=== PATIENT | female | born 1980 | race Caucasian/White ===

== ENCOUNTER 2016-11-01 10:26 | Emergency (ER) | payer OTHER ==
[~2016-11-01] VITALS: Ht 157.5 cm; Wt 49.9 kg
[~2016-11-01 10:26] MED LIST: CITA10TA4 PO; DICY10CA3 PO; IBUP-1060 PO; ONDA4TAB10 SL; ONDA4TAB7 PO; POTA10CA PO; PRED50TA PO
[2016-11-01] MEDS ORDERED: ONDANSETRON PF 4 MG/2 ML VIAL. IV ONE (11:15)
[2016-11-01 11:20] LABS: BILIRUBIN,URINE SMALL (NEG); GLUCOSE,URINE 100 mg/dL (NEG); NITRITE,URINE POSITIVE (NEG); PH,URINE 5.5; PROTEIN,URINE 100 mg/dL (NEG-TRACE)
[2016-11-01] MEDS ORDERED: MULTIVIT INFUSN,ADULT 4,VIT K 10 ML, FOLIC ACID 1 MG, THIAMINE 100 MG in IV NORMAL SALI... IV ONE (11:30)
--- NOTE | 2016-11-01 11:33 | PHYS DOC ---
Past Medical History Past Medical History: Asthma, Other Additional Past Medical Histor: RIGHT JAW SURGERY D/T FRACTURE, IBS, HPV Past Surgical History: Other Additional Past Surgical Histo: right jaw surgery Alcohol Use: Heavy Additional Information: 1 pint a day Drug Use: Marijuana Adult General Chief Complaint Chief Complaint: NAUSEA/VOMITING/DIARRHA HPI HPI This is a 36-year-old female who presents with ongoing epigastric pain with nausea and vomiting. She reports that she has had issues with alcohol abuse in the past and recently started using again yesterday. She now has significant epigastrium pain and nausea vomiting. She has vomited over 10 times. She denies any blood in her vomit. She states her last bowel movement was over 9 out of ago and was loose but no blood was seen. She denies any significant abdominal surgery. She rates her pain currently an 8 out of 10 on the pain scale localized to the epigastrium area. She denies any history of pancreatitis. Review of Systems Review of Systems Constitutional: Denies fever or chills [] Eyes: Denies change in visual acuity, redness, or eye pain [] HENT: Denies nasal congestion or sore throat [] Respiratory: Denies cough or shortness of breath [] Cardiovascular: No additional information not addressed in HPI [] GI: Has abdominal pain, has nausea, has vomiting, denies bloody stools or diarrhea [] : Denies dysuria or hematuria [] Musculoskeletal: Denies back pain or joint pain [] Integument: Denies rash or skin lesions [] Neurologic: Denies headache, focal weakness or sensory changes [] Endocrine: Denies polyuria or polydipsia [] Current Medications Current Medications Current Medications Medications (Trade) Dose Ordered Sig/Howard Start Time Stop Time Status Last Admin Dose Admin Ceftriaxone Sodium (Rocephin 1gm Ivpb For Omni) 50 ml @ 100 mls/hr 1X ONCE 11/01/16 12:45 11/01/16 13:14 DC 11/01/16 13:08 100 MLS/HR Fentanyl Citrate 50 mcg 50 mcg 1X ONCE 11/01/16 11:45 11/01/16 11:46 DC 11/01/16 11:51 50 MCG Multivitamins/ Folic Acid/ Thiamine HCl/ Sodium Chloride (Infuvite Adult/ Iv Sodium Chloride 0.9% 1000ml Bag) 1,011.2 ml @ 1,000 mls/ hr 1X ONCE 11/01/16 11:30 11/01/16 12:30 DC 11/01/16 11:28 1,000 MLS/HR Ondansetron HCl 4 mg 4 mg 1X ONCE 11/01/16 11:15 11/01/16 11:16 DC 11/01/16 11:12 4 MG Allergies Allergies Allergies Coded Allergies Type Severity Reaction Last Updated Verified Sulfa (Sulfonamide Antibiotics) Allergy Intermediate Hives 05/16/16 Yes Physical Exam Physical Exam Constitutional: Well developed, well nourished, mild distress, non-toxic appearance. [] HENT: Normocephalic, atraumatic, bilateral external ears normal, oropharynx moist, no oral exudates, nose normal. [] Eyes: PERRLA, EOMI, conjunctiva normal, no discharge. [] Neck: Normal range of motion, no tenderness, supple, no stridor. [] Cardiovascular:Heart rate regular rhythm, no murmur [] Lungs & Thorax: Bilateral breath sounds clear to auscultation [] Abdomen: Bowel sounds normal, soft, moderate epigastric tenderness, no masses, no pulsatile masses. [] Skin: Warm, dry, no erythema, no rash. [] Back: No tenderness, no CVA tenderness. [] Extremities: No tenderness, no cyanosis, no clubbing, ROM intact, no edema. [] Neurologic: Alert and oriented X 3, normal motor function, normal sensory function, no focal deficits noted. [] Psychologic: Affect normal, judgement normal, mood normal. [] Current Patient Data Vital Signs Vital Signs Date Time Temp Pulse Resp B/P Pulse Ox O2 Delivery O2 Flow Rate FiO2 11/01/16 13:08 79 18 118/75 99 Room Air 11/01/16 10:35 97.6 97.6 Lab Values Laboratory Tests Test 11/01/16 10:01 11/01/16 11:00 11/01/16 11:10 11/01/16 12:10 POC Urine HCG, Qualitative Hcg negative (Negative) Urine Collection Type Unknown Urine Color Wendy Urine Clarity Turbid Urine pH 5.5 Urine Specific [place] 1.025 Urine Protein 100mg/dL (NEG-TRACE) Urine Glucose (UA) 100mg/dL (NEG) Urine Ketones (Stick) Negativemg/dL (NEG) Urine Blood Large (NEG) Urine Nitrite Positive (NEG) Urine Bilirubin Small (NEG) Urine Urobilinogen Dipstick 1.0mg/dL (0.2 mg/dL) Urine Leukocyte Esterase Moderate (NEG) Urine RBC 3-5/HPF (0-2) Urine WBC 11-20/HPF (0-4) Urine Bacteria Moderate/HPF (0-FEW) Urine Opiates Screen Neg (NEG) Urine Methadone Screen Neg (NEG) Urine Barbiturates Neg (NEG) Urine Phencyclidine Screen Neg (NEG) Urine Amphetamine/Methamphetamine Neg (NEG) Urine Benzodiazepines Screen Neg (NEG) Urine Cocaine Screen Pos (NEG) Urine Cannabinoids Screen Neg (NEG) Urine Ethyl Alcohol Neg (NEG) Ethyl Alcohol Level < 10mg/dL (0-10) White Blood Count 26.5x10^3/uL (4.0-11.0) H Red Blood Count 4.81x10^6/uL (3.50-5.40) Hemoglobin 14.8g/dL (12.0-15.5) Hematocrit 45.0% (36.0-47.0) Mean Corpuscular Volume 94fL (79-100) Mean Corpuscular Hemoglobin 31pg (25-35) Mean Corpuscular Hemoglobin Concent 33g/dL (31-37) Red Cell Distribution Width 12.7% (11.5-14.5) Platelet Count 228x10^3/uL (140-400) Neutrophils (%) (Auto) 92% (31-73) H Lymphocytes (%) (Auto) 4% (24-48) L Monocytes (%) (Auto) 3% (0-9) Eosinophils (%) (Auto) 0% (0-3) Basophils (%) (Auto) 0% (0-3) Neutrophils # (Auto) 24.5x10^3uL (1.8-7.7) H Lymphocytes # (Auto) 1.0x10^3/uL (1.0-4.8) Monocytes # (Auto) 0.9x10^3/uL (0.0-1.1) Eosinophils # (Auto) 0.0x10^3/uL (0.0-0.7) Basophils # (Auto) 0.1x10^3/uL (0.0-0.2) Segmented Neutrophils % 95% (35-66) H Lymphocytes % 1% (24-48) L Monocytes % 3% (0-10) Basophils % 1% (0-3) Platelet Estimate Adequate (ADEQUATE) Polychromasia Slight Tear Drop Cells Occ Ovalocytes Occ Sodium Level 140mmol/L (136-145) Potassium Level 3.9mmol/L (3.5-5.1) Chloride Level 100mmol/L (98-107) Carbon Dioxide Level 28mmol/L (21-32) Anion Gap 12 (6-14) Blood Urea Nitrogen 12mg/dL (7-20) Creatinine 0.8mg/dL (0.6-1.0) Estimated GFR (Cockcroft-Gault) 80.7 BUN/Creatinine Ratio 15 (6-20) Glucose Level 147mg/dL (70-99) H Calcium Level 9.0mg/dL (8.5-10.1) Total Bilirubin 0.7mg/dL (0.2-1.0) Aspartate Amino Transferase (AST) 25U/L (15-37) Alanine Aminotransferase (ALT) 20U/L (14-59) Alkaline Phosphatase 137U/L (46-116) H Total Protein 7.7g/dL (6.4-8.2) Albumin 3.7g/dL (3.4-5.0) Albumin/Globulin Ratio 0.9 (1.0-1.7) L Lipase 64U/L (73-393) L Laboratory Tests 11/01/16 12:10 Laboratory Tests 11/01/16 12:10 EKG EKG [] Radiology/Procedures Radiology/Procedures [] Course & Med Decision Making Course & Med Decision Making Pertinent Labs and Imaging studies reviewed. (See chart for details) This 36-year-old female is likely having symptoms of alcohol withdrawal with significant epigastrium pain and nausea and vomiting. Full laboratory workup will be obtained including an IV fluid bolus and Zofran. Her laboratory workup is unrevealing besides a urinalysis that was positive for nitrites and drug screen positive for cocaine. A IV dose or Rocephin was given. I will be providing her a prescription for Keflex for her UTI. Her heart rate improved significantly with a IV fluid bolus. Upon my final reassessment, patient feels much improved and I'll be discharging her home with antibiotics and Zofran with strict instructions to avoid any illicit drug use or alcohol use. Follow closely with her primary care doctor for symptom resolution. Dragon Disclaimer Dragon Disclaimer This electronic medical record was generated, in whole or in part, using a voice recognition dictation system. Departure Departure Impression: Primary Impression: Nausea & vomiting Additional Impression: Urinary tract infection Disposition: HOME, SELF-CARE Admitting Physician: Other Condition: STABLE Referrals: NATALIE FLORES MD (PCP) Patient Instructions: Nausea and Vomiting, [id number] Additional Instructions: Please take your zofran as needed for your nausea. Take your antibiotic for your urinary infection. Follow up closely with your primary doctor in the next 2 -3 days. Return to the ER if you develop any worsening of your symptoms. Scripts Ondansetron Hcl (Zofran)4 Mg Tablet4 Mg PO BID PRN NAUSEA/VOMITING #1 TAB Prov:OJLENE RAMOS DO 11/01/16 Cephalexin (Keflex)500 Mg Capsule1 Cap PO BID #20 CAP Prov:JOLENE RAMOS DO 11/01/16 Problem Qualifiers JOLENE RAMOS DO Nov 01, 2016 11:33
[2016-11-01 11:44] LABS: BACTERIA,URINE MODERATE /HPF (0-FEW)
[2016-11-01] MEDS ORDERED: FENTANYL PF 100 MCG/2 ML VIAL. IV ONE (11:45)
[2016-11-01 12:20] LABS: BASO # 0.1 x10^3/uL (0.0-0.2); BASO % 0 % (0-3); EOS % 0 % (0-3); HEMOGLOBIN 14.8 g/dL (12.0-15.5); LYMPH % 4 % (24-48); MEAN CORPUSCULAR HEMOGLOBIN 31 pg (25-35); MEAN CORPUSCULAR HGB CONC 33 g/dL (31-37); MEAN CORPUSCULAR VOLUME 94 fL (79-100); MONO % 3 % (0-9); NEUT % 92 % (31-73); PLATELET COUNT 228 x10^3/uL (140-400); RED BLOOD COUNT 4.81 x10^6/uL (3.50-5.40); RED CELL DISTRIBUTION WIDTH 12.7 % (11.5-14.5); WHITE BLOOD COUNT 26.5 x10^3/uL (4.0-11.0)
[2016-11-01 12:30] LABS: CREATININE 0.8 mg/dL (0.6-1.0); GFR 80.7; POTASSIUM 3.9 mmol/L (3.5-5.1)
[2016-11-01 12:37] LABS: ALBUMIN 3.7 g/dL (3.4-5.0); ALBUMIN/GLOBULIN RATIO 0.9 (1.0-1.7); TOTAL BILIRUBIN 0.7 mg/dL (0.2-1.0); TOTAL PROTEIN 7.7 g/dL (6.4-8.2)
[2016-11-01] MEDS ORDERED: CEFTRIAXONE 1GM IVPB FOR OMNI 50 ML IV ONE (12:45)
[2016-11-01 13:08] VITALS: BP 118/75
[2016-11-01 13:18] LABS: BARBITURATES NEG (NEG); BENZODIAZEPINES NEG (NEG); CANNABINOIDS NEG (NEG); COCAINE POS (NEG); METHADONE NEG (NEG); OPIATES NEG (NEG); PHENCYCLIDINE NEG (NEG)
[2016-11-01 13:22] LABS: ETHANOL, URINE NEG (NEG)
[2016-11-01] MEDS ORDERED: CEPH-264 PO (14:05)
[2016-11-01] MEDS ORDERED: ONDA4TAB7 PO (14:05)
[2016-11-01 14:54] LABS: % BASOS 1 % (0-3)
[2016-11-01 14:56] LABS: OVALOCYTES OCC; PLT ESTIMATE ADEQUATE (ADEQUATE); POLYCHROMASIA SLIGHT; TEAR DROP CELLS OCC
== END 2016-11-01 15:23 | disposition home or self-care (01) ==
LOC: ER 10:26
DX: R11.2 Nausea with vomiting, unspecified (principal); N39.0 Urinary tract infection, site not specified; J45.909 Unspecified asthma, uncomplicated; F12.10 Cannabis abuse, uncomplicated; Z88.2 Allergy status to sulfonamides
CPT/HCPCS: 36415; 80053; 80305; 80320; 81001; 81025; 83690; 85007; 85027; 87086; 87186; 96365; 96367; 96375; 99284; J0690; J2405; J3010; J7030; G0480; G0481

== ENCOUNTER 2016-11-12 00:30 | Emergency (ER) | payer OTHER ==
[~2016-11-12] VITALS: Ht 157.5 cm; Wt 49.9 kg
[~2016-11-12 00:30] MED LIST changes: +CEPH-264 PO
[2016-11-12 00:33] VITALS: BP 120/86
[2016-11-12 02:20] LABS: BILIRUBIN,URINE NEGATIVE (NEG); GLUCOSE,URINE NEGATIVE (NEG); NITRITE,URINE NEGATIVE (NEG); PROTEIN,URINE NEGATIVE (NEG-TRACE); UROBILINOGEN,URINE 0.2 mg/dL (0.2 mg/dL)
[2016-11-12 02:27] LABS: BACTERIA,URINE FEW /HPF (0-FEW); SQUAMOUS EPITHELIAL CELL,UR MOD /LPF; WBC,URINE 20-40 /HPF (0-4)
[2016-11-12] MEDS ORDERED: NAPROXEN 500 MG TABLET PO ONE (02:30)
[2016-11-12] MEDS ORDERED: METR500T4 PO (04:04)
[2016-11-12] MEDS ORDERED: NITR100C62 PO (04:04)
[2016-11-12] MEDS ORDERED: NAPR375T3 PO (04:04)
--- NOTE | 2016-11-12 04:04 | PHYS DOC ---
Past Medical History Past Medical History: Asthma, Other Additional Past Medical Histor: RIGHT JAW SURGERY D/T FRACTURE, IBS, HPV Past Surgical History: Other Additional Past Surgical Histo: right jaw surgery Alcohol Use: Heavy Additional Information: ETOH tonight Drug Use: None Social History Narrative: Reports Jose in the past Adult General Chief Complaint Chief Complaint: SORE THROAT HPI HPI Patient is a 36 year old female who presents with cough, sore throat, vaginal discharge. Patient reports for the past 3 days she has been having cough and sore throat, as well as pain with coughing and right lateral lower chest. No fever. No anterior chest pain. No shortness of breath. She also reports since Monday she is having a fair amount of white vaginal discharge as well as dysuria. No clear inciting or mitigating factors. She has not taken anything for symptoms. Review of Systems Review of Systems Constitutional: Denies fever or chills Eyes: Denies change in visual acuity or eye pain HENT: Sore throat Respiratory: Cough, congestion. No SOB Cardiovascular: Denies chest pain GI: Denies abdominal pain, nausea, vomiting, bloody stools or diarrhea : Dysuria, white vaginal discharge Musculoskeletal: Denies back pain or joint pain Integument: Denies rash or skin lesions Neurologic: Denies headache, focal weakness or sensory changes Current Medications Current Medications Current Medications Medications (Trade) Dose Ordered Sig/Howard Start Time Stop Time Status Last Admin Dose Admin Naproxen (Naprosyn) 500 mg 1X ONCE 11/12/16 02:30 11/12/16 02:31 DC 11/12/16 02:20 500 MG Allergies Allergies Allergies Coded Allergies Type Severity Reaction Last Updated Verified Sulfa (Sulfonamide Antibiotics) Allergy Intermediate Hives 05/16/16 Yes Physical Exam Physical Exam Constitutional: Well developed, well nourished, no acute distress, non-toxic appearance HENT: Normocephalic, atraumatic, bilateral external ears normal; oropharynx clear without erythema or exudate Eyes: EOMI, conjunctiva normal, no discharge Neck: Normal range of motion, no stridor Cardiovascular: Heart rate normal, regular rhythm, no murmur Lungs & Thorax: Bilateral breath sounds clear to auscultation; TTP over R lateral costal margin, no deformity or skin lesion noted Abdomen: Bowel sounds normal, soft, non-distended, no TTP Pelvic: Moderate amount thin white/sprague discharge; no CMT or adnexal tenderness Skin: Warm, dry, no erythema, no rash Extremities: No obvious deformity, no edema Neurologic: Alert and oriented X 3, no gross deficits noted Current Patient Data Vital Signs Vital Signs Date Time Temp Pulse Resp B/P Pulse Ox O2 Delivery O2 Flow Rate FiO2 11/12/16 00:33 97.9 102 16 98 Room Air 97.9 Lab Values Laboratory Tests Test 11/12/16 01:18 11/12/16 01:34 11/12/16 02:03 POC Urine HCG, Qualitative Hcg negative (Negative) Group A Streptococcus Rapid Negative (NEGATIVE) Urine Collection Type Unknown Urine Color Yellow Urine Clarity Clear Urine pH 7.0 Urine Specific [place] <=1.005 Urine Protein Negativemg/dL (NEG-TRACE) Urine Glucose (UA) Negativemg/dL (NEG) Urine Ketones (Stick) Negativemg/dL (NEG) Urine Blood Small (NEG) Urine Nitrite Negative (NEG) Urine Bilirubin Negative (NEG) Urine Urobilinogen Dipstick 0.2mg/dL (0.2 mg/dL) Urine Leukocyte Esterase Large (NEG) Urine RBC 3-5/HPF (0-2) Urine WBC 20-40/HPF (0-4) Urine Squamous Epithelial Cells Mod/LPF Urine Bacteria Few/HPF (0-FEW) Microbiology 11/12/16 Wet Prep - Final, Complete EKG EKG [] Radiology/Procedures Radiology/Procedures [] Course & Med Decision Making Course & Med Decision Making Pertinent Labs and Imaging studies reviewed. (See chart for details) Patient is 36-year-old female who presents with cough, sore throat, white vaginal discharge. Cough, sore throat likely due to viral illness. Dose of naproxen ordered for patient comfort. Pelvic exam performed, swabs sent to lab. UA indicative of UTI. Pelvic swabs show Trichomonas. Discussed results with patient. Will discharge with prescription for antibiotics, instructions for follow-up, return precautions. Dragon Disclaimer Dragon Disclaimer This electronic medical record was generated, in whole or in part, using a voice recognition dictation system. Departure Departure Impression: Primary Impression: Sore throat Additional Impressions: Cough Trichimoniasis Disposition: HOME, SELF-CARE Condition: STABLE Referrals: NATALIE FLORES MD (PCP) Patient Instructions: Costochondritis, Trichomoniasis, Urinary Tract Infection Additional Instructions: Thank you for allowing us to provide care today in the Emergency Department. Take the provided medication as directed. Schedule a follow up appointment with your primary care doctor. Return promptly to the Emergency Department if you develop any new or concerning symptoms. Scripts Naproxen 375 Mg [id number] Mg PO BID PRN PAIN #20 Prov:AJIT CASTAÑEDA MD 11/12/16 Metronidazole 500 Mg Tablet1 Tab PO BID #14 TAB Prov:AJIT CASTAÑEDA MD 11/12/16 Nitrofurantoin Monohyd/M-Cryst (Macrobid 100 Mg Capsule)100 Mg Capsule1 Cap PO BID #10 CAP Prov:AJIT CASTAÑEDA MD 11/12/16 Problem Qualifiers AJIT CASTAÑEDA MD Nov 12, 2016 04:04
[2016-11-12 07:11] LABS: NEGATIVE OBC STREP NEG; POSITIVE OBC STREP POS
--- NOTE | 2016-11-12 07:39 | RAD ---
EXAM: Chest, 2 views. HISTORY: Pain. COMPARISON: 05/08/2016. FINDINGS: Frontal and lateral views of the chest are obtained. There is no infiltrate, effusion or pneumothorax. The heart is normal in size. There is hyperinflation due to respiratory effort. There is a small nodular opacity overlying the right lower thorax likely due to a nipple shadow. IMPRESSION: No acute pulmonary finding.
== END 2016-11-12 04:17 | disposition home or self-care (01) ==
LOC: ER 00:30
DX: J02.9 Acute pharyngitis, unspecified (principal); R05 Cough; A59.9 Trichomoniasis, unspecified; K58.9 Irritable bowel syndrome, unspecified; J45.909 Unspecified asthma, uncomplicated; F12.10 Cannabis abuse, uncomplicated; F10.10 Alcohol abuse, uncomplicated; Z88.2 Allergy status to sulfonamides
CPT/HCPCS: 71020; 81001; 81025; 87070; 87086; 87491; 87591; 87880; 99285; Q0111

== ENCOUNTER 2019-03-29 17:21 | Emergency (ER) | payer SELFPAY ==
[~2019-03-29] VITALS: Ht 157.5 cm; Wt 56.7 kg
[~2019-03-29 17:21] MED LIST changes: +METR-34 PO; +NAPR-695 PO; +NITR100C62 PO; -POTA10CA PO; +POTA10TA12 PO
[2019-03-29 18:13] VITALS: BP 110/62
[2019-03-29] MEDS ORDERED: AMOX500C PO (18:28)
--- NOTE | 2019-03-29 18:29 | PHYS DOC ---
Past Medical History Past Medical History: Asthma, Other Additional Past Medical Histor: RIGHT JAW SURGERY D/T FRACTURE, IBS, HPV Past Surgical History: Other Additional Past Surgical Histo: right jaw surgery Alcohol Use: Heavy Drug Use: None Adult General Chief Complaint Chief Complaint: EYE PROBLEMS [facility] Patient is a 38 year old female who presents with 1 week of right thigh redness, pain in discharge. Patient's also had bilateral ear pain in sinus congestion. Patient denies fevers. Patient currently rates her pain a 7 out of 10. Review of Systems Review of Systems Constitutional: Denies fever or chills [] Eyes: Denies change in visual acuity. Right eye swelling, discharge, conjunctiva redness, or eye pain [] HENT: nasal congestion or sore throat. Bilateral ear pain.[] Respiratory: Denies cough or shortness of breath [] Cardiovascular: No additional information not addressed in HPI [] GI: Denies abdominal pain, nausea, vomiting, bloody stools or diarrhea [] : Denies dysuria or hematuria [] Musculoskeletal: Denies back pain or joint pain [] Integument: Denies rash or skin lesions [] Neurologic: Denies headache, focal weakness or sensory changes [] Endocrine: Denies polyuria or polydipsia [] All other systems were reviewed and found to be within normal limits, except as documented in this note. Allergies Allergies Allergies Coded Allergies Type Severity Reaction Last Updated Verified Sulfa (Sulfonamide Antibiotics) Allergy Intermediate Hives 05/16/16 Yes Physical Exam Physical Exam Constitutional: Well developed, well nourished, no acute distress, non-toxic appearance. [] HENT: Normocephalic, atraumatic, bilateral external ears normal, oropharynx moist, no oral exudates, nose normal. Bilateral tympanic redness and tenderness with examination. Throat reddened without swelling or exudates. [] Eyes: PERRLA, EOMI, conjunctiva reddened, yellow discharge. [] Neck: Normal range of motion, no tenderness, supple, no stridor. [] Cardiovascular:Heart rate regular rhythm, no murmur [] Lungs & Thorax: Bilateral breath sounds clear to auscultation [] Abdomen: Bowel sounds normal, soft, no tenderness, no masses, no pulsatile masses. [] Skin: Warm, dry, no erythema, no rash. [] Back: No tenderness, no CVA tenderness. [] Extremities: No tenderness, no cyanosis, no clubbing, ROM intact, no edema. [] Neurologic: Alert and oriented X 3, normal motor function, normal sensory function, no focal deficits noted. [] Psychologic: Affect normal, judgement normal, mood normal. [] Current Patient Data Vital Signs Vital Signs Date Time Temp Pulse Resp B/P (MAP) Pulse Ox O2 Delivery O2 Flow Rate FiO2 03/29/19 18:13 98.3 98 16 110/62 (78) 98 Room Air 98.3 EKG EKG [] Radiology/Procedures Radiology/Procedures [] Course & Med Decision Making Course & Med Decision Making Patient is a 38 year old female who presents with 1 week of right thigh redness, pain in discharge. Patient's also had bilateral ear pain in sinus congestion. Patient denies fevers. Patient currently rates her pain a 7 out of 10. Throat is reddened but there are no exudates or swelling. Lungs are clear to auscultation all lobes. Abdomen is soft and nontender. Bilateral tympanic membranes are reddened and tender with examination. Right eye is red and swollen with discharge and conjunctivae is red. The eye is also light sensitive. Patient denies injury or getting anything in night. States it itches. Patient denies nausea, vomiting, diarrhea, cough, chest pain, chest congestion, shortness of breath. Patient is prescribed an antibiotic for otitis media and eye drops for conjunctivitis. Patient follow-up her primary care provider. Dragon Disclaimer Dragon Disclaimer This electronic medical record was generated, in whole or in part, using a voice recognition dictation system. Departure Departure Impression: Primary Impression: Conjunctivitis Additional Impression: Otitis media Disposition: 01 HOME, SELF-CARE Condition: STABLE Referrals: NATALIE FLORES MD (PCP) Patient Instructions: Conjunctivitis (Viral and Bacterial), Otitis Media, Adult Additional Instructions: Follow primary care provider if not getting better. Use eye drops in the affected eye 4 times a day. Take medications as prescribed. Scripts Amoxicillin (AMOXICILLIN) 500 Mg Capsule 1 CAP PO BID for 10 Days, #20 CAP Prov: YULIANA FOSTER APRN 03/29/19 Problem Qualifiers Primary Impression: Conjunctivitis Conjunctivitis type: acute Acute conjunctivitis type: unspecified Laterality: right Qualified Codes: H10.31 - Unspecified acute conjunctivitis, right eye Additional Impression: Otitis media Otitis media type: unspecified Laterality: bilateral Qualified Codes: H 66.93 - Otitis media, unspecified, bilateral YULIANA FOSTER FIRER WATERTENDER Mar 29, 2019 18:29
[2019-03-29] MEDS ORDERED: POLYMYXIN/TRIMETHOPRIM OPHTH SOLUTION 10ML BOTTLE. OD ONE (18:30)
== END 2019-03-29 18:46 | disposition home or self-care (01) ==
LOC: ER 17:21
DX: H10.31 Unspecified acute conjunctivitis, right eye (principal); H66.93 Otitis media, unspecified, bilateral; J45.909 Unspecified asthma, uncomplicated; K58.9 Irritable bowel syndrome, unspecified; F10.20 Alcohol dependence, uncomplicated; Y90.9 Presence of alcohol in blood, level not specified; Z88.2 Allergy status to sulfonamides
CPT/HCPCS: 99283

== ENCOUNTER 2019-08-21 04:40 | Emergency (ER) | payer SELFPAY ==
[~2019-08-21] VITALS: Ht 157.5 cm; Wt 45.4 kg
[~2019-08-21 04:40] MED LIST changes: +AMOX500C PO
[2019-08-21] MEDS: IV NORMAL SALINE 1000ML BAG 1,000 ML IV ONE (05:30)
[2019-08-21] MEDS: fentaNYL PF VIAL 100 MCG/2 ML VIAL IVP ONE (05:30)
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
[2019-08-21 06:33] LABS: BASO # 0.1 x10^3/uL (0.0-0.2); BASO % 1 % (0-3); EOS # 0.1 x10^3/uL (0.0-0.7); EOS % 1 % (0-3); HEMOGLOBIN 13.7 g/dL (12.0-15.5); LYMPH # 2.2 x10^3/uL (1.0-4.8); LYMPH % 25 % (24-48); MEAN CORPUSCULAR HEMOGLOBIN 31 pg (25-35); MEAN CORPUSCULAR HGB CONC 33 g/dL (31-37); MEAN CORPUSCULAR VOLUME 93 fL (79-100); MONO # 0.9 x10^3/uL (0.0-1.1); MONO % 10 % (0-9); NEUT # 5.7 x10^3/uL (1.8-7.7); NEUT % 63 % (31-73); PLATELET COUNT 231 x10^3/uL (140-400); RED BLOOD COUNT 4.41 x10^6/uL (3.50-5.40); RED CELL DISTRIBUTION WIDTH 14.9 % (11.5-14.5)
[2019-08-21 06:42] LABS: CALCIUM 7.5 mg/dL (8.5-10.1); CREATININE 0.5 mg/dL (0.6-1.0); GFR 136.6; POTASSIUM 3.1 mmol/L (3.5-5.1)
[2019-08-21 06:48] LABS: ALBUMIN 3.1 g/dL (3.4-5.0); ALBUMIN/GLOBULIN RATIO 0.9 (1.0-1.7); TOTAL BILIRUBIN 0.4 mg/dL (0.2-1.0); TOTAL PROTEIN 6.4 g/dL (6.4-8.2)
[2019-08-21] MEDS: POTASSIUM CHLORIDE 20 MEQ TABLET.ER. PO ONE (07:10)
[2019-08-21 07:35] LABS: AMPHETAMINE/METHAMPHETAMINE NEG (NEG); BARBITURATES NEG (NEG); BENZODIAZEPINES NEG (NEG); BILIRUBIN,URINE NEGATIVE (NEG); CANNABINOIDS POS (NEG); CLARITY,URINE CLEAR; COCAINE NEG (NEG); COLOR,URINE YELLOW; METHADONE NEG (NEG); NITRITE,URINE NEGATIVE (NEG); OPIATES NEG (NEG); PH,URINE 5.5; PHENCYCLIDINE NEG (NEG); PROTEIN,URINE 30 mg/dL (NEG-TRACE); UROBILINOGEN,URINE 0.2 mg/dL (0.2 mg/dL)
[2019-08-21 07:36] LABS: HYALINE CASTS, URINE FEW /HPF
[2019-08-21 07:37] LABS: SQUAMOUS EPITHELIAL CELL,UR MOD /LPF
[2019-08-21 07:38] LABS: BACTERIA,URINE MODERATE /HPF (0-FEW)
[2019-08-21] MEDS ORDERED: ONDA4TAB7 PO ×2 (07:46→08:17)
[2019-08-21] MEDS ORDERED: RANI-376 PO ×2 (07:46→08:17)
[2019-08-21 08:35] VITALS: BP 124/77
== END 2019-08-21 08:48 | disposition home or self-care (01) ==
LOC: ER 04:40
DX: K80.50 Calculus of bile duct without cholangitis or cholecystitis without obstruction (principal); K29.20 Alcoholic gastritis without bleeding; E87.6 Hypokalemia; R11.2 Nausea with vomiting, unspecified; J45.909 Unspecified asthma, uncomplicated; F10.10 Alcohol abuse, uncomplicated; Z98.890 Other specified postprocedural states; Z88.2 Allergy status to sulfonamides; Z79.899 Other long term (current) drug therapy
CPT/HCPCS: 36415; 80053; 80307; 81001; 83690; 85025; 87086; 96361; 96374; 99285; G0480; J3010; J7030

== ENCOUNTER 2019-12-06 15:30 | Emergency (ER) | payer SELFPAY ==
[~2019-12-06] VITALS: Ht 177.8 cm; Wt 54.5 kg
[~2019-12-06 15:30] MED LIST changes: +RANI-376 PO
[2019-12-06 15:47] VITALS: BP 130/80
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
[2019-12-06 16:27] LABS: BILIRUBIN,URINE NEGATIVE (NEG); CLARITY,URINE CLEAR; COLOR,URINE YELLOW; NITRITE,URINE NEGATIVE (NEG); PROTEIN,URINE NEGATIVE (NEG-TRACE); UROBILINOGEN,URINE 0.2 mg/dL (0.2 mg/dL)
[2019-12-06 16:35] LABS: AMPHETAMINE/METHAMPHETAMINE POS (NEG); BARBITURATES NEG (NEG); BENZODIAZEPINES NEG (NEG); CANNABINOIDS NEG (NEG); COCAINE NEG (NEG); METHADONE NEG (NEG); OPIATES NEG (NEG); PHENCYCLIDINE NEG (NEG)
[2019-12-06 16:36] LABS: BACTERIA,URINE 0 /HPF (0-FEW); SQUAMOUS EPITHELIAL CELL,UR OCC /LPF; WBC,URINE RARE /HPF (0-4)
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
[2019-12-06] MEDS ORDERED: IBUP-1007 PO (17:11)
[2019-12-06] MEDS ORDERED: AMOX500C PO (17:11)
== END 2019-12-06 17:17 | disposition home or self-care (01) ==
LOC: ER 15:30
DX: H60.501 Unspecified acute noninfective otitis externa, right ear (principal); R51 Headache; F15.10 Other stimulant abuse, uncomplicated; J45.909 Unspecified asthma, uncomplicated; K58.9 Irritable bowel syndrome, unspecified; F17.200 Nicotine dependence, unspecified, uncomplicated; Z88.2 Allergy status to sulfonamides
CPT/HCPCS: 70450; 70486; 80307; 81001; 81025; 99285-25

== ENCOUNTER 2020-04-29 15:15 | Emergency (ER) | payer SELFPAY ==
[~2020-04-29 15:15] MED LIST changes: +IBUP-1007 PO
[2020-04-29 15:59] VITALS: BP 129/95
== END 2020-04-29 17:00 | disposition left against medical advice (07) ==
LOC: ER 15:15
DX: S71.151A Open bite, right thigh, initial encounter (principal); Z53.21 Procedure and treatment not carried out due to patient leaving prior to being seen by health care provider

== ENCOUNTER 2020-05-01 09:00 | Emergency (ER) | payer SELFPAY ==
[~2020-05-01] VITALS: Ht 165.1 cm; Wt 48.1 kg
[2020-05-01 09:08] VITALS: BP 116/84
[2020-05-01] MEDS ORDERED: LIDOCAINE 1%/EPI 1:100,000 20 ML VIAL. ONE (09:30)
[2020-05-01] MEDS ORDERED: BUPIVACAINE MPF 0.25% 10 ML VIAL. IJ ONE (09:30)
[2020-05-01] MEDS ORDERED: AMOXICILLIN/K CLAV 875/125MG TABLET. PO ONE (09:30)
[2020-05-01] MEDS ORDERED: LIDOCAINE 1%/EPI 1:100,000 20 ML VIAL. INJ ONE (09:45)
[2020-05-01] MEDS ORDERED: AMOX1TAB61 PO (09:52)
--- NOTE | 2020-05-01 09:53 | PHYS DOC ---
Past Medical History Past Medical History: Asthma, Gallstones, Other Additional Past Medical Histor: RIGHT JAW SURGERY D/T FRACTURE, IBS, HPV Past Surgical History: Other Additional Past Surgical Histo: right jaw surgery Smoking Status: Current Every Day Smoker Additional Information: 0.5 PPD Alcohol Use: Heavy Drug Use: None General Adult EDM: Chief Complaint: ANIMAL BITE HPI: HPI: The history was obtained from the patient. Patient is a 39-year-old female with PMH asthma who presents with a chief complaint of left thigh injury. Patient states approximately 2 weeks ago she was bitten by a dog over her proximal left thigh. She states that she was dog sitting for a friend. She is unsure of the dog's vaccination status. She states she did not present to any healthcare provider at that time. She states that the wound was left open and has been draining green-yellow discharge. She notes a mild redness around the bite wound. She does note some mild swelling to the area. Denies fevers. Unsure of last tetanus vaccination. States she is able to ambulate. No other complaints. Review of Systems: Review of Systems: Constitutional: Denies fever or chills. [] Eyes: Denies change in visual acuity. [] HENT: Denies nasal congestion or sore throat. [] Respiratory: Denies cough or shortness of breath. [] Cardiovascular: Denies chest pain or edema. [] GI: Denies abdominal pain, nausea, vomiting, bloody stools or diarrhea. [] : Denies dysuria. [] Musculoskeletal: Denies back pain or joint pain. [] Integument: Positive for animal bite Neurologic: Denies headache, focal weakness or sensory changes. [] Endocrine: Denies polyuria or polydipsia. [] Lymphatic: Denies swollen glands. [] Psychiatric: Denies depression or anxiety. [] Heart Score: Risk Factors: Risk Factors: DM, Current or recent (<one month) smoker, HTN, HLP, family history of CAD, obesity. Risk Scores: Score 0 - 3: 2.5% MACE over next 6 weeks - Discharge Home Score 4 - 6: 20.3% MACE over next 6 weeks - Admit for Clinical Observation Score 7 - 10: 72.7% MACE over next 6 weeks - Early Invasive Strategies Current Medications: Current Medications Medications (Trade) Dose Ordered Sig/Howard Start Time Stop Time Status Last Admin Dose Admin Amoxicillin/ Clavulanate Potassium (Augmentin 875/ 125mg) 1 tab 1X ONCE 05/01/20 09:30 05/01/20 09:31 DC 05/01/20 09:30 1 TAB Bupivacaine HCl (Sensorcaine-Mpf 0.25%) 20 ml 1X ONCE 05/01/20 09:30 05/01/20 09:35 DC Lidocaine/ Epinephrine (LIDOCAINE 1%-EPI 1:100,000 Multi-Dose) 20 ml 1X ONCE 05/01/20 09:45 05/01/20 09:46 DC Allergies: Allergies: Allergies Coded Allergies Type Severity Reaction Last Updated Verified Sulfa (Sulfonamide Antibiotics) Allergy Intermediate Hives 05/16/16 Yes Physical Exam: PE: Constitutional: Well developed, well nourished, no acute distress, non-toxic appearance. [] HENT: Normocephalic, atraumatic, bilateral external ears normal, oropharynx moist, no oral exudates, nose normal. [] Eyes: PERRLA, EOMI, conjunctiva normal, no discharge. [] Neck: Normal range of motion, no tenderness, supple, no stridor. [] Cardiovascular:Heart rate regular rhythm, no murmur [] Lungs & Thorax: Bilateral breath sounds clear to auscultation [] Abdomen:soft, no tenderness, no masses, no pulsatile masses. [] Skin: Warm, dry, no erythema, no rash. [] Back: No tenderness, no CVA tenderness. [] Extremities: Proximal left thigh with palpable area of fluctuance. 3 bite pichardo noted with mild surrounding erythema. Mild induration palpated. Wounds appear open. No inguinal lymphadenopathy. Neurologic: Alert and oriented X 3, normal motor function, normal sensory function, no focal deficits noted. [] Psychologic: Affect normal, judgement normal, mood normal. [] Current Patient Data: Vital Signs: Vital Signs Date Time Temp Pulse Resp B/P (MAP) Pulse Ox O2 Delivery O2 Flow Rate FiO2 05/01/20 09:08 97.3 84 18 116/84 (95) 98 Room Air 97.3 EKG: EKG: [] Radiology/Procedures: Radiology/Procedures: [] Location: Proximal left thigh Indications: Fluid collection Procedure Details: Patient's proximal left thigh was exposed, positioned, and prepped using Betadine. Landmarks were palpated and skin was appropriately marked as needed. For skin and subcutaneous tissue, 10cc of lidocaine 1% epinephrine was used. A 2 cm incision was made using #10 through skin in a linear fashion. Immediate findings included 10mL of serosanguineous. Specimen was sent for aerobic and anaerobic culture. Cavity further explored to break up all loculations. Wound was irrigated using 50 cc normal saline, minimal amount of bleeding occurred, controlled with direct pressure. Wound packed with 1/2" and covered with sterile dressing. Course & Med Decision Making: Course & Med Decision Making Pertinent Labs and Imaging studies reviewed. (See chart for details) [] Patient is a 39-year-old female presents with chief complaint of left proximal thigh dog bite that occurred approximately 2 weeks ago. Initial vital signs unremarkable. Exam revealed palpable area of fluctuance. Bite pichardo did show mild surrounding erythema but overall appears well-healed. Bedside ultrasound did reveal a fluid collection subcutaneously. Incision and drainage was performed with serosanguineous output. Aerobic and anaerobic wound cultures were sent and are pending. She will be discharged home with oral Augmentin. Tetanus updated. Given the bite occurred from a domestic canine and was 2 weeks ago I do not feel rabies prophylaxis is indicated. She was instructed to follow-up in 2 days for repeat wound evaluation. She did tolerate p.o. and her first oral antibiotic in the emergency department. Return precautions discussed and understood. Stable for discharge home. Ananya Disclaimer: Ananya Disclaimer: This electronic medical record was generated, in whole or in part, using a voice recognition dictation system. Departure Departure Impression: Primary Impression: Dog bite Qualified Codes: W54.0XXA - Bitten by dog, initial encounter Additional Impression: Abscess Disposition: 01 HOME, SELF-CARE Condition: STABLE Referrals: NO PCP (PCP) Patient Instructions: Animal Bite Additional Instructions: Please follow-up with healthcare provider in 2 days for wound reevaluation. Scripts Amoxicillin/Potassium Clav (AUGMENTIN 875-125 TABLET) 1 Each Tablet 1 TAB PO BID for 10 Days, #20 TAB 0 Refills Prov: BREE WARNER DO 05/01/20 Justicifation of Admission Dx: Justifications for Admission: Justification of Admission Dx: N/A BREE WARNER DO May 01, 2020 09:53
[2020-05-01] MEDS ORDERED: DIPH,PERTUSS(ACELL),TET VAC/PF 0.5 ML SYRINGE. VAX IM ONE (10:00)
== END 2020-05-01 10:07 | disposition home or self-care (01) ==
LOC: ER 09:00
DX: L02.416 Cutaneous abscess of left lower limb (principal); J45.909 Unspecified asthma, uncomplicated; F17.200 Nicotine dependence, unspecified, uncomplicated; F10.20 Alcohol dependence, uncomplicated; Y90.9 Presence of alcohol in blood, level not specified; K58.9 Irritable bowel syndrome, unspecified; Z88.2 Allergy status to sulfonamides; W54.0XXA Bitten by dog, initial encounter; Y93.89 Activity, other specified; Y92.89 Other specified places as the place of occurrence of the external cause; Y99.8 Other external cause status
CPT/HCPCS: 10060; 87071; 87075; 90471; 90715; 99283; J3490

== ENCOUNTER 2020-05-05 23:50 | Emergency (ER) | payer SELFPAY ==
[~2020-05-05] VITALS: Ht 160 cm; Wt 48.1 kg
[~2020-05-05 23:50] MED LIST changes: +AMOX1TAB61 PO
[2020-05-06 02:00] VITALS: BP 125/80
[2020-05-06] MEDS ORDERED: DOXY100T PO (22:53)
== END 2020-05-06 02:31 | disposition left against medical advice (07) ==
LOC: ER 23:50
DX: T14.8XXD Other injury of unspecified body region, subsequent encounter (principal); W54.0XXD Bitten by dog, subsequent encounter; Z53.21 Procedure and treatment not carried out due to patient leaving prior to being seen by health care provider

== ENCOUNTER 2020-05-06 19:56 | Emergency (ER) | payer SELFPAY ==
[~2020-05-06] VITALS: Ht 160 cm; Wt 50.0 kg
[2020-05-06] MEDS ORDERED: PIPERACILLIN/TAZOBACTAM 4.5 GM in IV NORMAL SALINE 100ML 100 ML IV ONE (20:15)
[2020-05-06] MEDS ORDERED: VANCOMYCIN PER PHARMACY MC ONE (20:15)
[2020-05-06] MEDS ORDERED: MORPHINE SULFATE 4 MG/ML VIAL. IV/SQ PRN (20:15)
[2020-05-06] MEDS: IV NORMAL SALINE 1000ML BAG 1,000 ML IV SCH ×2 (20:59→23:18)
[2020-05-06] MEDS ORDERED: VANCOMYCIN PER PHARMACY MC PRN (21:00)
[2020-05-06] MEDS ORDERED: VANCOMYCIN 1.25 GM in IV NORMAL SALINE 250ML 250 ML IV ONE (21:00)
[2020-05-06 21:16] LABS: BASO # 0.1 x10^3/uL (0.0-0.2); BASO % 1 % (0-3); EOS # 0.2 x10^3/uL (0.0-0.7); EOS % 2 % (0-3); HEMATOCRIT 42.9 % (36.0-47.0); HEMOGLOBIN 14.4 g/dL (12.0-15.5); LYMPH # 2.6 x10^3/uL (1.0-4.8); LYMPH % 33 % (24-48); MEAN CORPUSCULAR HEMOGLOBIN 31 pg (25-35); MEAN CORPUSCULAR HGB CONC 34 g/dL (31-37); MEAN CORPUSCULAR VOLUME 93 fL (79-100); MONO # 0.6 x10^3/uL (0.0-1.1); MONO % 8 % (0-9); NEUT # 4.4 x10^3/uL (1.8-7.7); NEUT % 56 % (31-73); PLATELET COUNT 292 x10^3/uL (140-400); RED CELL DISTRIBUTION WIDTH 14.5 % (11.5-14.5); WHITE BLOOD COUNT 7.9 x10^3/uL (4.0-11.0)
[2020-05-06 21:28] LABS: CALCIUM 9.1 mg/dL (8.5-10.1); CREATININE 0.8 mg/dL (0.6-1.0); GFR 79.4; POTASSIUM 3.7 mmol/L (3.5-5.1)
[2020-05-06 21:34] LABS: ALBUMIN 3.4 g/dL (3.4-5.0); ALBUMIN/GLOBULIN RATIO 0.8 (1.0-1.7); TOTAL BILIRUBIN 0.2 mg/dL (0.2-1.0); TOTAL PROTEIN 7.7 g/dL (6.4-8.2)
--- NOTE | 2020-05-06 22:46 | PHYS DOC ---
Past Medical History Past Medical History: Asthma, Gallstones, Other Additional Past Medical Histor: RIGHT JAW SURGERY D/T FRACTURE, IBS, HPV (GALINA ESCAMILLA APRN) Past Surgical History: Other Additional Past Surgical Histo: right jaw surgery (GALINA ESCAMILLA APRN) Smoking Status: Current Every Day Smoker Alcohol Use: Occasionally Drug Use: None (GALINA ESCAMILLA APRN) General Adult EDM: Chief Complaint: WOUND CHECK HPI: HPI: Patient is a 39 year old female who presents to the ED to be evaluated for dog bites on the left thigh that she has had for 2 weeks. Patient states she got bit by a domestic pit bull that she was watching for her friend. Patient was seen in the ED 6 days ago, she was started on Augmentin, she was given tetanus shot. She states she was not able to afford the Augmentin. Denies any fever. Patient reports when she was seen in the ED 6 days ago they did an incision and drainage of the wound. (GALINA ESCAMILLA APRN) Review of Systems: Review of Systems: Constitutional: Denies fever or chills. [] Musculoskeletal: Denies back pain or joint pain. [] Integument: Reports dog bite to the left thigh Neurologic: Denies headache, focal weakness or sensory changes. [] Psychiatric: Denies depression or anxiety. [] (GALINA ESCAMILLA APRN) Heart Score: Risk Factors: Risk Factors: DM, Current or recent (<one month) smoker, HTN, HLP, family history of CAD, obesity. Risk Scores: Score 0 - 3: 2.5% MACE over next 6 weeks - Discharge Home Score 4 - 6: 20.3% MACE over next 6 weeks - Admit for Clinical Observation Score 7 - 10: 72.7% MACE over next 6 weeks - Early Invasive Strategies (GALINA ESCAMILLA APRN) Current Medications: Current Medications Medications (Trade) Dose Ordered Sig/Howard Start Time Stop Time Status Last Admin Dose Admin Morphine Sulfate (Morphine Sulfate) 4 mg PRN Q15MIN PRN 05/06/20 20:15 05/07/20 20:14 05/06/20 21:00 4 MG Piperacillin Sod/ Tazobactam Sod 4.5 gm/Sodium Chloride 100 ml @ 200 mls/hr 1X ONCE 05/06/20 20:15 05/06/20 20:44 DC 05/06/20 22:30 200 MLS/HR Sodium Chloride 1,000 ml @ 1,710 mls/hr Q36M 05/06/20 20:06 05/06/20 21:06 DC 05/06/20 20:59 1,710 MLS/HR Vancomycin HCl (Vanco Per Pharmacy) 1 each PRN DAILY PRN 05/06/20 21:00 Vancomycin HCl 1.25 gm/Sodium Chloride 250 ml @ 166.667 mls/hr 1X ONCE 05/06/20 21:00 05/06/20 22:29 DC (GALINA ESCAMILLA APRN) Allergies: Allergies: Allergies Coded Allergies Type Severity Reaction Last Updated Verified Sulfa (Sulfonamide Antibiotics) Allergy Intermediate Hives 05/16/16 Yes (GALINA ESCAMILLA APRN) Physical Exam: PE: Constitutional: Well developed, well nourished, no acute distress, non-toxic appearance. [] Skin: Warm, dry, left ventral thigh with 2 scabbed over bite pichardo with surrounding erythema, there is an open wound approximately 2 x 0.5 cm with packing that is dry. The packing was removed. There is surrounding erythema to this wound. The area is not warm, no tenderness. Back: No tenderness, no CVA tenderness. [] Extremities: No tenderness, no cyanosis, no clubbing, ROM intact, no edema. [] Neurologic: Alert and oriented X 3, normal motor function, normal sensory function, no focal deficits noted. [] Psychologic: Affect normal, judgement normal, mood normal. [] (GALINA ESCAMILLA APRN) Current Patient Data: Labs: Laboratory Tests Test 05/06/20 20:50 White Blood Count 7.9 x10^3/uL (4.0-11.0) Red Blood Count 4.60 x10^6/uL (3.50-5.40) Hemoglobin 14.4 g/dL (12.0-15.5) Hematocrit 42.9 % (36.0-47.0) Mean Corpuscular Volume 93 fL (79-100) Mean Corpuscular Hemoglobin 31 pg (25-35) Mean Corpuscular Hemoglobin Concent 34 g/dL (31-37) Red Cell Distribution Width 14.5 % (11.5-14.5) Platelet Count 292 x10^3/uL (140-400) Neutrophils (%) (Auto) 56 % (31-73) Lymphocytes (%) (Auto) 33 % (24-48) Monocytes (%) (Auto) 8 % (0-9) Eosinophils (%) (Auto) 2 % (0-3) Basophils (%) (Auto) 1 % (0-3) Neutrophils # (Auto) 4.4 x10^3/uL (1.8-7.7) Lymphocytes # (Auto) 2.6 x10^3/uL (1.0-4.8) Monocytes # (Auto) 0.6 x10^3/uL (0.0-1.1) Eosinophils # (Auto) 0.2 x10^3/uL (0.0-0.7) Basophils # (Auto) 0.1 x10^3/uL (0.0-0.2) Sodium Level 140 mmol/L (136-145) Potassium Level 3.7 mmol/L (3.5-5.1) Chloride Level 103 mmol/L (98-107) Carbon Dioxide Level 29 mmol/L (21-32) Anion Gap 8 (6-14) Blood Urea Nitrogen 8 mg/dL (7-20) Creatinine 0.8 mg/dL (0.6-1.0) Estimated GFR (Cockcroft-Gault) 79.4 BUN/Creatinine Ratio 10 (6-20) Glucose Level 94 mg/dL (70-99) Lactic Acid Level 1.7 mmol/L (0.4-2.0) Calcium Level 9.1 mg/dL (8.5-10.1) Total Bilirubin 0.2 mg/dL (0.2-1.0) Aspartate Amino Transferase (AST) 19 U/L (15-37) Alanine Aminotransferase (ALT) 12 U/L (14-59) L Alkaline Phosphatase 126 U/L (46-116) H Total Protein 7.7 g/dL (6.4-8.2) Albumin 3.4 g/dL (3.4-5.0) Albumin/Globulin Ratio 0.8 (1.0-1.7) L Laboratory Tests 05/06/20 20:50 Laboratory Tests 05/06/20 20:50 Vital Signs: Vital Signs Date Time Temp Pulse Resp B/P (MAP) Pulse Ox O2 Delivery O2 Flow Rate FiO2 05/06/20 21:00 22 Room Air 05/06/20 20:00 98.0 91 130/87 (101) 99 98.0 (GALINA ESCAMILLA APRN) EKG: EKG: [] (GALINA ESCAMILLA APRN) Radiology/Procedures: Radiology/Procedures: [] (GALINA ESCAMILLA APRN) Course & Med Decision Making: Course & Med Decision Making Pertinent Labs and Imaging studies reviewed. (See chart for details) This is a 39-year-old female patient who presents to the ED today with dog bites to the left thigh that occurred 2 weeks ago. Patient was seen in the ED on 01 May and had an I&D on 1 of the bites. She was sent home with Augmentin. She states she was not able to buy the medicine because of affordability. Labs were done in the ED which were negative for any acute findings including a normal CBC and a normal lactic. Patient to be switched to doxycycline due to cost. Discharge to home. Was given Zosyn in the ED. (GALINA ESCAMILLA APRN) Course & Med Decision Making Due to difficulties discharging patient I reevaluated patient at bedside. Patient demanding oral antibiotic medications to go home with and wound dressing supplies. Is unwilling to provide us with a home address so that we could get her in a cab and send her home. Refuses a chcf list. States she will be back here for antibiotics if we do not give her some to go home with. Reports she has no money to fill her antibiotic prescriptions. I recommended patient follow-up at local health department for supportive services. Patient became very defensive, disrespectful and calls me a bitch stating I'm not helping her. Pt meets no sepsis criteria, has no active cellulitis, ([facility]) Ananya Disclaimer: Ananya Disclaimer: This electronic medical record was generated, in whole or in part, using a voice recognition dictation system. (GALINA ESCAMILLA APRN) Departure Departure Impression: Primary Impression: Dog bite Qualified Codes: W54.0XXD - Bitten by dog, subsequent encounter Disposition: HOME, SELF-CARE Condition: STABLE Referrals: NO PCP (PCP) follow up with your doctor in 1-2 weeks Patient Instructions: Animal Bite, [id number] Additional Instructions: You were evaluated in the emergency room for dog bite. We switched you from Augmentin to doxycycline due to dominguez. Take it as prescribed until completed. Follow-up with your own doctor Scripts Doxycycline Hyclate (DOXYCYCLINE HYCLATE) 100 Mg Tablet 1 TAB PO BID, #20 TAB Prov: GALINA ESCAMILLA APRN 05/06/20 Justicifation of Admission Dx: Justifications for Admission: Justification of Admission Dx: N/A (GALINA ESCAMILLA APRN) GALINA ESCAMILLA APRN May 06, 2020 22:46 MATT HIGHTOWER DO May 07, 2020 00:58
[2020-05-06] MEDS ORDERED: DOXY100T PO (22:53)
[2020-05-07 00:15] VITALS: BP 121/83
== END 2020-05-07 01:10 | disposition home or self-care (01) ==
LOC: ER 19:56
DX: S71.152A Open bite, left thigh, initial encounter (principal); J45.909 Unspecified asthma, uncomplicated; F17.200 Nicotine dependence, unspecified, uncomplicated; Z87.442 Personal history of urinary calculi; Z98.890 Other specified postprocedural states; Z88.2 Allergy status to sulfonamides; W54.0XXA Bitten by dog, initial encounter; Y93.89 Activity, other specified; Y92.89 Other specified places as the place of occurrence of the external cause; Y99.8 Other external cause status
CPT/HCPCS: 36415; 80053; 83605; 85025; 87040; 96365; 96367; 96375; 99285; J2270; J2543; J3370; J7030; J7050

== ENCOUNTER 2020-06-09 12:50 | Emergency (ER) | payer SELFPAY ==
[~2020-06-09] VITALS: Ht 157.5 cm; Wt 50.0 kg
[~2020-06-09 12:50] MED LIST changes: +DOXY100T PO
[2020-06-09 13:46] LABS: BILIRUBIN,URINE MODERATE (NEG); CLARITY,URINE CLOUDY; NITRITE,URINE NEGATIVE (NEG); PROTEIN,URINE 100 mg/dL (NEG-TRACE)
[2020-06-09 13:52] LABS: COLOR,URINE YELLOW
[2020-06-09 13:53] LABS: BACTERIA,URINE MANY /HPF (0-FEW); RBC,URINE >40 /HPF (0-2); WBC,URINE >40 /HPF (0-4)
[2020-06-09 13:56] LABS: TRICHOMONAS,URINE PRESENT
--- NOTE | 2020-06-09 14:24 | PHYS DOC ---
Past Medical History Past Medical History: Asthma, Gallstones, Other Additional Past Medical Histor: RIGHT JAW SURGERY D/T FRACTURE, IBS, HPV, panic disorder (YULIANA FOSTER WOODWIND INSTRUMENTS INSPECTOR) Past Surgical History: Other Additional Past Surgical Histo: right jaw surgery (YULIANA FOSTER WO[employer]WIND INSTRUMENTS INSPECTOR) Smoking Status: Current Every Day Smoker Alcohol Use: Occasionally Drug Use: None (YULIANA FOSTER APRN) General Adult EDM: Chief Complaint: SEXUALLY TRANSMITTED DISEASE HPI: HPI: Patient is a 39 year old female who presents with 3 days of burning with urination, low mid abdominal pain that is cramping type pain, green-yellow vagin al discharge. Patient denies nausea, vomiting, diarrhea, chest pain, shortness of air, fever, body aches, vision changes, dizziness, headache. Patient rates her pain that is nonradiating on a 7 out of 10. Patient has a history of smoker, gallstones, asthma, right jaw surgery, HPV, panic disorder, IBS. (YULIANA FOSTER WOODWIND INSTRUMENTS INSPECTOR) Review of Systems: Review of Systems: Constitutional: Denies fever or chills. [] Eyes: Denies change in visual acuity. [] HENT: Denies nasal congestion or sore throat. [] Respiratory: Denies cough or shortness of breath. [] Cardiovascular: Denies chest pain or edema. [] GI: + abdominal pain, denies nausea, vomiting, bloody stools or diarrhea. [] : +dysuria. + Vaginal discharge [] Musculoskeletal: +Bilateral flank back pain or denies joint pain. [] Integument: Denies rash. [] Neurologic: Denies headache, focal weakness or sensory changes. [] Endocrine: Denies polyuria or polydipsia. [] Lymphatic: Denies swollen glands. [] Psychiatric: Denies depression or anxiety. [] (YULIANA FOSTER WO[employer] INSTRUM[employer] INSPECTOR) Heart Score: Risk Factors: Risk Factors: DM, Current or recent (<one month) smoker, HTN, HLP, family history of CAD, obesity. Risk Scores: Score 0 - 3: 2.5% MACE over next 6 weeks - Discharge Home Score 4 - 6: 20.3% MACE over next 6 weeks - Admit for Clinical Observation Score 7 - 10: 72.7% MACE over next 6 weeks - Early Invasive Strategies (YULIANA FOSTER APRN) Current Medications: Current Medications Medications (Trade) Dose Ordered Sig/Howard Start Time Stop Time Status Last Admin Dose Admin Azithromycin (Zithromax) 1,000 mg 1X ONCE 06/09/20 14:45 06/09/20 14:46 Ceftriaxone Sodium (Rocephin Im) 250 mg 1X ONCE 06/09/20 14:45 06/09/20 14:46 Ondansetron HCl (Zofran) 4 mg 1X ONCE 06/09/20 14:45 06/09/20 14:46 (SANDRAYULIANA APRN) Allergies: Allergies: Allergies Coded Allergies Type Severity Reaction Last Updated Verified Sulfa (Sulfonamide Antibiotics) Allergy Intermediate Hives 05/16/16 Yes (YULIANA FOSTER APRN) Physical Exam: PE: Constitutional: Well developed, well nourished, no acute distress, non-toxic appearance. [] HENT: Normocephalic, atraumatic, bilateral external ears normal, oropharynx moist, no oral exudates, nose normal. [] Eyes: PERRLA, EOMI, conjunctiva normal, no discharge. [] Neck: Normal range of motion, no tenderness, supple, no stridor. [] Cardiovascular:Heart rate regular rhythm, no murmur [] Lungs & Thorax: Bilateral breath sounds clear to auscultation [] Abdomen: Bowel sounds normal, soft, low mid tenderness, no masses, no pulsatile masses. [] Skin: Warm, dry, no erythema, no rash. [] Back: No tenderness, no CVA tenderness. [] Extremities: No tenderness, no cyanosis, no clubbing, ROM intact, no edema. [] Neurologic: Alert and oriented X 3, normal motor function, normal sensory function, no focal deficits noted. [] Psychologic: Affect normal, judgement normal, mood normal. [] (YULIANA FOSTER APRN) Current Patient Data: Labs: Laboratory Tests Test 06/09/20 12:55 06/09/20 13:42 Urine Collection Type Unknown Urine Color Yellow Urine Clarity Cloudy Urine pH 6.0 (<5.0-8.0) Urine Specific [place] 1.020 (1.000-1.030) Urine Protein 100 mg/dL (NEG-TRACE) Urine Glucose (UA) 100 mg/dL (NEG) Urine Ketones (Stick) Trace mg/dL (NEG) Urine Blood Large (NEG) Urine Nitrite Negative (NEG) Urine Bilirubin Moderate (NEG) Urine Urobilinogen Dipstick 1.0 mg/dL (0.2 mg/dL) Urine Leukocyte Esterase Large (NEG) Urine RBC >40 /HPF (0-2) Urine WBC >40 /HPF (0-4) Urine Squamous Epithelial Cells Mod /LPF Urine Bacteria Many /HPF (0-FEW) Urine Mucus Marked /LPF Urine Trichomonas Present POC Urine HCG, Qualitative Hcg negative (Negative) Microbiology 06/09/20 Wet Prep - Final, Complete Vital Signs: Vital Signs Date Time Temp Pulse Resp B/P (MAP) Pulse Ox O2 Delivery O2 Flow Rate FiO2 06/09/20 13:35 98.3 100 22 102/62 (75) 99 Room Air 98.3 (YULIANA FOSTER APRN) EKG: EKG: [] (YULIANA FOSTER APRN) Radiology/Procedures: Radiology/Procedures: [] Impression: [facility] [address] [place] [address] IMAGING REPORT Signed PATIENT: SHELBY MANCUSO ACCOUNT: [id number] : 1980 LOCATION: ER AGE: 39 SEX: F EXAM STATUS: REG ER ORD. PHYSICIAN: YULIANA FOSTER APRN REASON: pelvic pain, STD positive, low grade fever PROCEDURE: CT ABD PELV W/ IV CONTRST ONLY Exam: CT of abdomen and pelvis with contrast INDICATION: Pelvic pain, STT positive, lower inferior TECHNIQUE: Sequential axial images through the abdomen and pelvis obtained following the administration of 75 mL of Omni 300 IV contrast. Sagittal and coronal reformatted images were reconstructed from the axial data and reviewed. Comparisons: None FINDINGS: Heart size is normal. No pericardial effusion. Strandy opacities at dependent portion lungs likely representing atelectasis. No pleural effusion. Liver, spleen, pancreas, gallbladder and adrenals are unremarkable. No perinephric inflammation or hydronephrosis. No renal or ureteral calculi are identified. Bladder is partially distended and not well evaluated. Uterus is not enlarged. No abnormal adnexal mass. Large and small bowel are unremarkable. Appendix is nonidentified. No free intra-abdominal air or fluid. No obstruction. Abdominal aorta has a normal course and caliber. Abdominal vasculature is patent. No enlarged abdominal lymph nodes are identified. No suspicious osseous lesions or acute fractures. IMPRESSION: No acute process identified in the abdomen or pelvis. Exposure: One or more of the following in the visualized dose reduction techniques were utilized for this examination: 1. Automated exposure control 2. Adjustment of the MA and/or KV according to patient size 3. Use of iterative of reconstructive technique Electronically signed by: Seamus Griffith MD (06/09/2020 3:46 PM) [facility] DICTATED and SIGNED BY: SEAMUS GRIFFITH MD DATE: 06/09/201545 (YULIANA FOSTER APRN) Course & Med Decision Making: Course & Med Decision Making Pertinent Labs and Imaging studies reviewed. (See chart for details) See HPI. Low mid abdominal tenderness but soft and otherwise nontender. Alert and oriented x4. Ambulatory to steady gait. Speaks in full complete sentences. Skin pink warm and dry. Lactic acid is normal. Urinalysis shows of course STD infection and trichomonas. Wet prep shows BV and trichomonas. Patient is treated with azithromycin, metronidazole, and Rocephin in the ED. She will be sent home on metronidazole and doxycycline. She likely has pelvic inflammatory disease. CT abdomen pelvis showed no acute findings. She does have a white count. Pelvic Exam: Solar Installer Pv present Abdomen: Low mid tenderness External Genitalia: Normal Skin Speculum: Normal vaginal mucosa, yellow/green cervical discharge Bimanual: No adnexal masses or tenderness, No CMT [] (YULIANA FOSTER APRN) Dragon Disclaimer: Dragon Disclaimer: This electronic medical record was generated, in whole or in part, using a voice recognition dictation system. (YULIANA FOSTER APRN) Departure Departure Impression: Primary Impression: Trichimoniasis Additional Impressions: Sexually transmissible disease Bacterial vaginosis PID (acute pelvic inflammatory disease) Disposition: 01 DC HOME SELF CARE/HOMELESS Condition: STABLE Referrals: NO PCP (PCP) NIKKI GONZALEZ Jr, MD Patient Instructions: Bacterial Vaginosis, [id number], Pelvic Inflammatory Disease, Sexually Transmitted Disease, Trichomoniasis Additional Instructions: Go to your primary care or I referred you to a mate fishing vessel for follow-up care. Take medication as prescribed and with food. Do not drink alcohol with this medication. Scripts Ondansetron (ONDANSETRON ODT) 4 Mg Tab.rapdis 1 TAB PO PRN Q6-8HRS, #16 TAB Prov: YULIANA FOSTER APRN 06/09/20 Doxycycline Hyclate (DOXYCYCLINE HYCLATE) 100 Mg Capsule 1 CAP PO BID for 14 Days, #28 CAP Prov: YULIANA FOSTER APRN 06/09/20 Metronidazole (METRONIDAZOLE) 500 Mg Tablet 1 TAB PO BID for 7 Days, #14 TAB 0 Refills Prov: YULIANA FOSTER APRN 06/09/20 Attending Signature Attending Signature I have reviewed the PA/DCS ENGINEER's note and plan of care. I was available for consultation as needed during the patient's visit in the emergency department. I agree with the clinical impression, plan, and disposition. (NATALIE PALMA DO) YULIANA FOSTER APRN Jun 09, 2020 14:24 NATALIE PALMA DO Jun 09, 2020 18:46
[2020-06-09] MEDS ORDERED: IV NORMAL SALINE 1000ML BAG 1,000 ML IV ONE ×3 (14:30→15:15)
[2020-06-09 14:40] LABS: BASO # 0.1 x10^3/uL (0.0-0.2); BASO % 1 % (0-3); EOS # 0.2 x10^3/uL (0.0-0.7); EOS % 1 % (0-3); HEMATOCRIT 41.9 % (36.0-47.0); HEMOGLOBIN 13.9 g/dL (12.0-15.5); LYMPH # 1.1 x10^3/uL (1.0-4.8); LYMPH % 6 % (24-48); MEAN CORPUSCULAR HEMOGLOBIN 31 pg (25-35); MEAN CORPUSCULAR HGB CONC 33 g/dL (31-37); MEAN CORPUSCULAR VOLUME 94 fL (79-100); MONO # 1.2 x10^3/uL (0.0-1.1); MONO % 7 % (0-9); NEUT # 15.7 x10^3/uL (1.8-7.7); NEUT % 85 % (31-73); PLATELET COUNT 147 x10^3/uL (140-400); RED BLOOD COUNT 4.47 x10^6/uL (3.50-5.40); RED CELL DISTRIBUTION WIDTH 13.6 % (11.5-14.5); WHITE BLOOD COUNT 18.4 x10^3/uL (4.0-11.0)
[2020-06-09] MEDS ORDERED: AZITHROMYCIN 250 MG TABLET. PO ONE (14:45)
[2020-06-09] MEDS ORDERED: metroNIDAZOLE 500 MG TABLET PO ONE (14:45)
[2020-06-09] MEDS ORDERED: cefTRIAXone IV Push 1 GM VIAL. IVP ONE (14:45)
[2020-06-09] MEDS ORDERED: ONDANSETRON PF 4 MG/2 ML VIAL. IVP ONE (14:45)
[2020-06-09] MEDS ORDERED: cefTRIAXone IM 250 MG VIAL IM ONE (14:45)
[2020-06-09 14:55] LABS: CALCIUM 9.3 mg/dL (8.5-10.1); CREATININE 0.6 mg/dL (0.6-1.0); GFR 110.7; POTASSIUM 3.7 mmol/L (3.5-5.1)
[2020-06-09 15:01] LABS: % BANDS 7 % (0-9); % BASOS 1 % (0-3); % EOS 1 % (0-5); % LYMPHS 10 % (24-48); % MONOS 4 % (0-10); % SEGS 77 % (35-66); PLT ESTIMATE ADEQUATE (ADEQUATE)
[2020-06-09 15:08] LABS: ALBUMIN 2.8 g/dL (3.4-5.0); ALBUMIN/GLOBULIN RATIO 0.7 (1.0-1.7); TOTAL BILIRUBIN 0.4 mg/dL (0.2-1.0); TOTAL PROTEIN 7.1 g/dL (6.4-8.2)
[2020-06-09] MEDS ORDERED: IOHEXOL 300 MG/ML 100ML VIAL. IV ONE (15:15)
--- NOTE | 2020-06-09 15:48 | RAD ---
Exam: CT of abdomen and pelvis with contrast INDICATION: Pelvic pain, STT positive, lower inferior TECHNIQUE: Sequential axial images through the abdomen and pelvis obtained following the administration of 75 mL of Omni 300 IV contrast. Sagittal and coronal reformatted images were reconstructed from the axial data and reviewed. Comparisons: None FINDINGS: Heart size is normal. No pericardial effusion. Strandy opacities at dependent portion lungs likely representing atelectasis. No pleural effusion. Liver, spleen, pancreas, gallbladder and adrenals are unremarkable. No perinephric inflammation or hydronephrosis. No renal or ureteral calculi are identified. Bladder is partially distended and not well evaluated. Uterus is not enlarged. No abnormal adnexal mass. Large and small bowel are unremarkable. Appendix is nonidentified. No free intra-abdominal air or fluid. No obstruction. Abdominal aorta has a normal course and caliber. Abdominal vasculature is patent. No enlarged abdominal lymph nodes are identified. No suspicious osseous lesions or acute fractures. IMPRESSION: No acute process identified in the abdomen or pelvis. Exposure: One or more of the following in the visualized dose reduction techniques were utilized for this examination: 1. Automated exposure control 2. Adjustment of the MA and/or KV according to patient size 3. Use of iterative of reconstructive technique Electronically signed by: Seamus Pineda MD (06/09/2020 3:46 PM) [facility]
[2020-06-09 17:08] VITALS: BP 112/70
[2020-06-09] MEDS ORDERED: METR-34 PO (17:12)
[2020-06-09] MEDS ORDERED: DOXY100C2 PO (17:12)
[2020-06-09] MEDS ORDERED: ONDA4TAB12 PO (17:12)
[2020-06-12 00:08] LABS: GC PROBE Negative (Negative)
== END 2020-06-09 17:25 | disposition home or self-care (01) ==
LOC: ER 12:50
DX: A59.9 Trichomoniasis, unspecified (principal); N76.0 Acute vaginitis; B96.89 Other specified bacterial agents as the cause of diseases classified elsewhere; N73.0 Acute parametritis and pelvic cellulitis; J45.909 Unspecified asthma, uncomplicated; K58.9 Irritable bowel syndrome, unspecified; F17.200 Nicotine dependence, unspecified, uncomplicated; Z88.2 Allergy status to sulfonamides
CPT/HCPCS: 36415; 74177; 80053; 81001; 81025; 83605; 83690; 85007; 85025; 87077; 87086; 87491; 87591; 96361; 96365; 96372; 96375; 99285; J0696; J2405; J3490; J7030; Q0111; Q9967

== ENCOUNTER 2020-07-10 19:19 | Observation (INO) | payer SELFPAY ==
[~2020-07-10] VITALS: Ht 160 cm; Wt 48.4 kg
[~2020-07-10 19:19] MED LIST changes: +DOXY100C2 PO; +ONDA4TAB12 PO
[2020-07-10] MEDS ORDERED: KETOROLAC 30 MG/ML VIAL. ONE (20:42)
[2020-07-10] MEDS ORDERED: methylPREDNISolone SOD SUCC PF 125 MG/2 ML VIAL. ONE (20:42)
[2020-07-10 20:45] LABS: BASO # 0.1 x10^3/uL (0.0-0.2); BASO % 1 % (0-3); EOS % 0 % (0-3); HEMATOCRIT 40.8 % (36.0-47.0); HEMOGLOBIN 13.7 g/dL (12.0-15.5); LYMPH # 1.8 x10^3/uL (1.0-4.8); LYMPH % 11 % (24-48); MEAN CORPUSCULAR HEMOGLOBIN 31 pg (25-35); MEAN CORPUSCULAR HGB CONC 34 g/dL (31-37); MEAN CORPUSCULAR VOLUME 92 fL (79-100); MONO # 1.2 x10^3/uL (0.0-1.1); MONO % 7 % (0-9); NEUT # 13.1 x10^3/uL (1.8-7.7); NEUT % 81 % (31-73); PLATELET COUNT 212 x10^3/uL (140-400); RED BLOOD COUNT 4.42 x10^6/uL (3.50-5.40); RED CELL DISTRIBUTION WIDTH 13.5 % (11.5-14.5); WHITE BLOOD COUNT 16.2 x10^3/uL (4.0-11.0)
[2020-07-10 20:59] LABS: CALCIUM 8.3 mg/dL (8.5-10.1); CREATININE 0.8 mg/dL (0.6-1.0); GFR 79.4; POTASSIUM 3.3 mmol/L (3.5-5.1)
[2020-07-10 21:05] LABS: ALBUMIN 2.6 g/dL (3.4-5.0); ALBUMIN/GLOBULIN RATIO 0.6 (1.0-1.7); TOTAL BILIRUBIN 0.3 mg/dL (0.2-1.0); TOTAL PROTEIN 7.2 g/dL (6.4-8.2)
[2020-07-10 21:06] LABS: % BANDS 3 % (0-9); % EOS 1 % (0-5); % LYMPHS 15 % (24-48); % MONOS 7 % (0-10); % SEGS 74 % (35-66); PLT ESTIMATE ADEQUATE (ADEQUATE)
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
[2020-07-10] MEDS ORDERED: KETOROLAC 30 MG/ML VIAL. IVP ONE (21:15)
[2020-07-10] MEDS ORDERED: methylPREDNISolone SOD SUCC PF 125 MG/2 ML VIAL. IV ONE (21:15)
--- NOTE | 2020-07-10 21:17 | RAD ---
PORTABLE CHEST 1V Clinical History: Reason: COUGH, SOA / Spl. Instructions: / History: Technique: AP view of the chest was obtained at 07/10/2020 8:31 PM. Comparison: November 12, 2016. Findings: The cardiomediastinal silhouette is normal. The pulmonary vasculature is normal. The lungs and pleural margins are clear. Impression: No evidence of an acute cardiopulmonary process. Electronically signed by: Zia Beck III, MD (07/10/2020 9:14 PM) [facility]
[2020-07-10 21:25] LABS: BASE EXCESS COOX -2 mmol/L (-3-3); HCO3 COOX 21 mmol/L (21-28); METHEMOGLOBIN 0.3 % (0.0-1.9); OXYHEMOGLOBIN 94.7 %; PCO2 COOX 31 mmHg (35-46); PO2 COOX 78 mmHg (75-108); SAT O2 COOX 96 % (92-99)
[2020-07-10] MEDS ORDERED: IV NORMAL SALINE 1000ML BAG 1,000 ML IV ONE ×2 (21:30→22:30)
[2020-07-10 21:40] LABS: BILIRUBIN,URINE NEGATIVE (NEG); CLARITY,URINE CLOUDY; COLOR,URINE YELLOW; NITRITE,URINE NEGATIVE (NEG); PROTEIN,URINE NEGATIVE (NEG-TRACE); UROBILINOGEN,URINE 0.2 mg/dL (0.2 mg/dL)
[2020-07-10 21:54] LABS: INFLUENZA A PATIENT NEGATIVE (NEGATIVE); INFLUENZA B PATIENT NEGATIVE (NEGATIVE)
[2020-07-10 21:58] LABS: BACTERIA,URINE MANY /HPF (0-FEW)
[2020-07-10 21:59] LABS: HYALINE CASTS, URINE FEW /HPF
[2020-07-10 22:49] LABS: BARBITURATES NEG (NEG); BENZODIAZEPINES NEG (NEG); CANNABINOIDS NEG (NEG); COCAINE NEG (NEG); METHADONE NEG (NEG); OPIATES NEG (NEG); PHENCYCLIDINE NEG (NEG)
[2020-07-10 23:04] LABS: AMPHETAMINE/METHAMPHETAMINE POS (NEG)
--- NOTE | 2020-07-11 00:34 | RAD ---
EXAMINATION: CT MAXILLOFACIAL WO CONTRAST, CT HEAD AND CERVICAL SPINE WO CLINICAL HISTORY: Altered mental status, bruising around left eye TECHNIQUE: Serial axial images without IV contrast were obtained from the vertex to the foramen magnum. CT of the cervical spine without IV contrast. Spiral, high resolution axial images were obtained from the skull base to the cervicothoracic junction with sagittal and coronal planar reconstructions. Spiral high resolution axial unenhanced images were obtained through the facial bones with sagittal and coronal planar reconstructions. CT Dose Reduction Employed: One or more of the following individualized dose reduction techniques were utilized for this examination: 1. Automated exposure control 2. Adjustment of the mA and/or kV according to patient size 3. Use of iterative reconstruction technique. COMPARISON: None FINDINGS: BRAIN: Post-operative change: None. Acute change: No evidence of an acute contusion or other acute parenchymal process. Hemorrhage: No evidence of acute intracranial hemorrhage. Mass Lesion / Mass Effect: There is no evidence of an intracranial mass or extraaxial fluid collection. No significant mass effect. Chronic change: None apparent. Parenchyma: There is no significant volume loss. The brain parenchyma is otherwise within normal limits for age. Ventricles: The ventricles are within normal limits of size and configuration for age. Skull base: The skull base and imaged soft tissues are unremarkable. C-SPINE: Alignment: Alignment is anatomic. Craniocervical junction: Craniocervical junction is normal. Osseous structures/fracture: No evidence of a lytic or blastic process in the visualized spine. No evidence of acute fracture. Cervical soft tissues: No prevertebral soft tissue swelling. Incidentally noted is edematous changes in the bilateral lung apices. Degenerative changes: No significant degenerative changes. MAXILLOFACIAL: Soft Tissues: Mild left malar soft tissue swelling. Facial Bones: No evidence of acute facial bone fracture. Orbits: No evidence of acute orbital fracture. Globes are intact. Soft tissue planes of the orbits maintained. Paranasal Sinuses: Diffuse mucoperiosteal thickening throughout the paranasal sinuses with near complete opacification of the bilateral maxillary sinuses. Given attenuation values in the maxillary sinuses, blood products cannot be excluded. Other: No evidence of destructive osseous lesion. IMPRESSION: Mild left malar soft tissue swelling without definitively visualized acute facial bone fracture. No evidence of acute intracranial abnormality or acute osseous abnormality involving the cervical spine. Findings most suggestive of pansinusitis as described. Electronically signed by: Wagner Zimmer DO (07/11/2020 12:32 AM) [facility]
[2020-07-11 04:15] VITALS: BP 95/54
[2020-07-11] MEDS ORDERED: NICOTINE 14MG PATCH. TD PRN (05:45)
[2020-07-11] MEDS: HYDROcodone/APAP 5/325MG 1 TAB TABLET PO PRN ×2 (06:25→12:37)
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
[2020-07-11 07:00] VITALS: BP 86/52
[2020-07-11] MEDS ORDERED: FLU VACC QS 2020-21(6MOS+)/PF 0.5 ML SYRINGE. VAX IM ONE (09:00)
[2020-07-11 11:00] VITALS: BP 97/62
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
--- NOTE | 2020-07-11 15:32 | NUR ---
Patient left against medical advice. She was seen by Dr. Jose Francisco orta to leave the floor at 1425. Security personnel was notified and tried to locate the patient. Apparently the patient left the hospital premises. The patient still has her IV in place. insight director, sales department supervisor were notified of the incident.
--- NOTE | 2020-07-13 08:06 | EKG ---
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
== END 2020-07-11 14:25 | disposition left against medical advice (07) ==
LOC: ER 19:19 → 6 SOUTH 23:54
PROVIDERS: ADMIT Family Medicine; ATTEND Family Medicine
DX: R41.82 Altered mental status, unspecified (principal); Z20.828 Contact with and (suspected) exposure to other viral communicable diseases; R06.02 Shortness of breath; J45.909 Unspecified asthma, uncomplicated; K58.9 Irritable bowel syndrome, unspecified; F41.0 Panic disorder [episodic paroxysmal anxiety]; K80.80 Other cholelithiasis without obstruction; D72.829 Elevated white blood cell count, unspecified; G93.40 Encephalopathy, unspecified; E87.1 Hypo-osmolality and hyponatremia; E87.6 Hypokalemia; E44.0 Moderate protein-calorie malnutrition; F17.210 Nicotine dependence, cigarettes, uncomplicated; Z23 Encounter for immunization; Z98.890 Other specified postprocedural states
CPT/HCPCS: 36415; 36600; 70450; 70486; 71045; 72125; 80053; 80307; 81001; 82805; 83880; 84484; 85007; 85025; 87086; 87804; 90471; 90686; 96361; 96374; 96375; 99285; G0378; J1885; J2930; J7030; U0003; 93005; G0379

== ENCOUNTER 2021-09-25 09:45 | Emergency (ER) | payer OTHER ==
[~2021-09-25] VITALS: Ht 160 cm; Wt 54.5 kg
[~2021-09-25 09:45] MED LIST changes: -CITA10TA4 PO; +CITA10TA5 PO; -DOXY100C2 PO; +DOXY100C3 PO
[2021-09-25] MEDS ORDERED: IV RINGERS,LACTATED 1000ML 1,000 ML IV ONE ×2 (10:00→12:45)
[2021-09-25] MEDS ORDERED: ONDANSETRON PF 4 MG/2 ML VIAL. IVP ONE (10:00)
--- NOTE | 2021-09-25 10:10 | PHYS DOC ---
Past Medical History Past Medical History: Anxiety, Asthma, Gallstones, IBS, Other Additional Past Medical Histor: HPV, panic disorder Past Surgical History: Other Additional Past Surgical Histo: right jaw surgery Smoking Status: Current Every Day Smoker Alcohol Use: Occasionally Drug Use: Methamphetamine General Adult EDM: Chief Complaint: OVERDOSE HPI: HPI: Patient is a 41 year old female who presents via EMS with drug overdose. Patient states she did not know the person she bought drugs from. She thought she had i njected methamphetamines, but she is unsure what she actually injected. Whomever she was with after injecting took her outside when she became unresponsive. EMS was called and reports her GCS was 3 at that time. She spontaneously improved to GCS of 15 en route without narcan administration. Patient complains of feeling "itchy" and nauseated. She states, "I never wanna feel like this again." She denies pain and all other complaints. Review of Systems: Review of Systems: Constitutional: Denies fever, chills or generalized weakness Eyes: Denies change in visual acuity, visual field deficits or discharge HENT: Denies ear pain, nasal congestion or sore throat Respiratory: Denies cough or shortness of breath Cardiovascular: Denies chest pain, palpitations or edema GI: See HPI : Denies dysuria or hematuria Musculoskeletal: Denies back pain or joint pain Integument: See HPI Neurologic: Denies headache, focal weakness or sensory changes Heart Score: C/O Chest Pain: No Allergies: Allergies: Allergies Coded Allergies Type Severity Reaction Last Updated Verified Sulfa (Sulfonamide Antibiotics) Allergy Intermediate Hives 05/16/16 Yes Physical Exam: PE: Constitutional: Thin, disheveled, tearful, patient appears older than stated age. HENT: Normocephalic, atraumatic, bilateral external ears without deformity/ecchymosis or discharge, oropharynx moist, poor dentition, nose without deformity or discharge. Eyes: Pinpoint but symmetric pupils, PERRL, EOMI, conjunctiva normal, no discharge. Neck: Normal range of motion, no stridor. Cardiovascular: Heart rate regular rhythm, no murmur. Lungs & Thorax: Bilateral breath sounds clear to auscultation. Abdomen: Bowel sounds normal, soft, no tenderness, no masses, no pulsatile masses. Skin: Patient has red linear pichardo across her neck and chest consistent with scratching. Skin otherwise warm, dry, no erythema, no rash. Extremities: No tenderness, no cyanosis, no clubbing, ROM intact, no edema, no obvious deformities. Neurologic: Alert and oriented x3 (person, place, situation), no focal deficits noted. Current Patient Data: Labs: Laboratory Tests Test 09/25/21 10:18 09/25/21 11:55 White Blood Count 6.8 x10^3/uL (4.0-11.0) Red Blood Count 4.09 x10^6/uL (3.50-5.40) Hemoglobin 12.3 g/dL (12.0-15.5) Hematocrit 37.5 % (36.0-47.0) Mean Corpuscular Volume 92 fL (79-100) Mean Corpuscular Hemoglobin 30 pg (25-35) Mean Corpuscular Hemoglobin Concent 33 g/dL (31-37) Red Cell Distribution Width 13.6 % (11.5-14.5) Platelet Count 221 x10^3/uL (140-400) Neutrophils (%) (Auto) 50 % (31-73) Lymphocytes (%) (Auto) 36 % (24-48) Monocytes (%) (Auto) 9 % (0-9) Eosinophils (%) (Auto) 4 % (0-3) Basophils (%) (Auto) 1 % (0-3) Neutrophils # (Auto) 3.4 x10^3/uL (1.8-7.7) Lymphocytes # (Auto) 2.4 x10^3/uL (1.0-4.8) Monocytes # (Auto) 0.6 x10^3/uL (0.0-1.1) Eosinophils # (Auto) 0.3 x10^3/uL (0.0-0.7) Basophils # (Auto) 0.1 x10^3/uL (0.0-0.2) Sodium Level 144 mmol/L (136-145) Potassium Level 3.6 mmol/L (3.5-5.1) Chloride Level 108 mmol/L (98-107) Carbon Dioxide Level 25 mmol/L (21-32) Anion Gap 11 (6-14) Blood Urea Nitrogen 15 mg/dL (7-20) Creatinine 0.6 mg/dL (0.6-1.0) Estimated GFR (Cockcroft-Gault) 109.6 BUN/Creatinine Ratio 25 (6-20) Glucose Level 127 mg/dL (70-99) Calcium Level 8.0 mg/dL (8.5-10.1) Magnesium Level 2.0 mg/dL (1.8-2.4) Total Bilirubin 0.2 mg/dL (0.2-1.0) Aspartate Amino Transf (AST/SGOT) 12 U/L (15-37) Alanine Aminotransferase (ALT/SGPT) 18 U/L (14-59) Alkaline Phosphatase 69 U/L (46-116) Troponin I High Sensitivity < 4 ng/L (4-50) Total Protein 6.9 g/dL (6.4-8.2) Albumin 3.4 g/dL (3.4-5.0) Albumin/Globulin Ratio 1.0 (1.0-1.7) Lipase 104 U/L (73-393) Urine Collection Type Unknown Urine Color Yellow Urine Clarity Clear Urine pH 6.5 (<5.0-8.0) Urine Specific [place] 1.020 (1.000-1.030) Urine Protein 30 mg/dL (NEG-TRACE) Urine Glucose (UA) Negative mg/dL (NEG) Urine Ketones (Stick) Negative mg/dL (NEG) Urine Blood Negative (NEG) Urine Nitrite Negative (NEG) Urine Bilirubin Negative (NEG) Urine Urobilinogen Dipstick 1.0 mg/dL (0.2 mg/dL) Urine Leukocyte Esterase Negative (NEG) Urine RBC 0 /HPF (0-2) Urine WBC 1-4 /HPF (0-4) Urine Squamous Epithelial Cells Mod /LPF Urine Bacteria Few /HPF (0-FEW) Urine Mucus Mod /LPF Urine Opiates Screen Neg (NEG) Urine Methadone Screen Neg (NEG) Urine Barbiturates Neg (NEG) Urine Phencyclidine Screen Pos (NEG) Urine Amphetamine/Methamphetamine Pos (NEG) Urine Benzodiazepines Screen Neg (NEG) Urine Cocaine Screen Neg (NEG) Urine Cannabinoids Screen Pos (NEG) Urine Ethyl Alcohol Neg (NEG) Vital Signs: Vital Signs Date Time Temp Pulse Resp B/P (MAP) Pulse Ox O2 Delivery O2 Flow Rate FiO2 09/25/21 15:02 82 93/51 (65) 99 Room Air 09/25/21 14:47 86 101/55 (70) 99 Room Air 09/25/21 14:32 86 98/57 (71) 100 Room Air 09/25/21 14:17 94 102/56 (71) 99 Room Air 09/25/21 14:02 88 97/55 (69) 99 Room Air 09/25/21 13:47 92 95/55 (68) 99 Room Air 09/25/21 13:32 92 92/58 (69) 99 Room Air 09/25/21 13:17 98 102/58 (73) 99 Room Air 09/25/21 13:02 98 112/59 (76) 99 Room Air 09/25/21 12:47 98 109/60 (76) 91 Room Air 09/25/21 12:32 84 121/73 (89) 100 Room Air 09/25/21 12:17 72 123/76 (92) 100 Room Air 09/25/21 12:02 62 118/69 (85) 100 Room Air 09/25/21 11:47 70 138/84 (102) 100 Room Air 09/25/21 11:32 66 139/70 (93) 100 Room Air 09/25/21 11:17 62 146/70 (95) 100 Room Air 09/25/21 11:02 56 132/89 (103) 100 Room Air 09/25/21 10:47 60 122/75 (91) 100 Room Air 09/25/21 10:32 62 123/76 (92) 100 Room Air 09/25/21 10:17 12 137/76 (96) 100 Room Air 09/25/21 10:02 88 9 138/82 (100) 99 Room Air 09/25/21 09:47 97.8 100 10 138/82 (100) 99 Room Air 97.8 09/25/21 09:47 100 10 138/82 (100) 99 Nasal Cannula 2.0 EKG: EKG: EKG Interpreted by Dr. Thomason at 1008: Regular rate and rhythm 64 bpm with no ectopic beats. Incomplete RBBB. QT 448 ms/QTc 467 ms. No STEMI. Radiology/Procedures: Radiology/Procedures: PROCEDURE: CHEST AP ONLY XR CHEST 1V CLINICAL INDICATIONS: Reason: overdose, dyspnea / Spl. Instructions: / History: COMPARISON: July 05, 2020. Findings: No acute lung infiltrate or pleural effusion or pulmonary edema or lung mass or pneumothorax is seen. The heart size, pulmonary vasculature, mediastinum and both akin are unremarkable. Mild scoliosis is seen. IMPRESSION: No acute radiographic abnormality is seen. Electronically signed by: Ezra Steward MD (09/25/2021 10:15 AM) [id number] Course & Med Decision Making: Course & Med Decision Making Pertinent Labs and Imaging studies reviewed. (See chart for details) Patient is a 41-year-old female who presents via EMS due to drug overdose. Patient was reportedly GCS 3 on EMS arrival, and spontaneously improved to GCS 13. No Narcan was administered. On arrival to the emergency department, patient was able to state that her overdose was accidental. She states she believes she was doing methamphetamine, but did not know the individual from which she obtained the drugs. Work-up will include labs, urinalysis, urine drug screen, EKG, chest x-ray. Urine drug screen is positive for methamphetamines, PCP and marijuana. Patient is currently asleep and appears to be resting comfortably. She is given 2 L of IV fluids. On reevaluation, patient states she is not homicidal, suicidal and she does not wish to check into a rehab facility. She states "I want to do this again." PAT was paged to evaluate the patient and give her psychiatric clearance for discharge. PAT provided patient with resources for sobering unit and outpatient rehabilitation information. At this time, patient states she does not wish to s top using drugs, which is contrary to prior claims and discussions while in the department today. Patient's daughter is able to diamond picker the patient from the emergency department and put her someplace safe to stay (patient states she can stay with a friend). At this time, she has both medically and psychologically cleared for discharge. Ananya Disclaimer: Ananya Disclaimer: This electronic medical record was generated, in whole or in part, using a voice recognition dictation system. Departure Departure Impression: Primary Impression: Polysubstance overdose Qualified Codes: T50.901A - Poisoning by unspecified drugs, medicaments and biological substances, accidental (unintentional), initial encounter Additional Impression: Amphetamine abuse Disposition: HOME / SELF CARE / HOMELESS Condition: IMPROVED Referrals: NO PCP (PCP) Patient Instructions: Alcohol and Drug Addiction, Finding Treatment Additional Instructions: EMERGENCY DEPARTMENT GENERAL DISCHARGE INSTRUCTIONS Thank you for coming to [facility] Emergency Department (ED) today and trusting us with you care. We trust that you had a positive experience in our Emergency Department. If you wish to speak to the department management, you may call the director at . YOUR FOLLOW UP INSTRUCTIONS ARE FOLLOWS: 1. Follow up with your primary care doctor. If you do not have a primary doctor, please ask for a resource list of physicians or clinics that may be able to assist you with follow up care. 2. The emergency provider has interpreted your imaging studies, if any were ordered. The radiology demo event specialist also reviewed them. If there is a change in the findings, you will be notified in 48 hours when at all possible. 3. If a lab test or culture has been done, your results will be reviewed and you will be notified if you need a change in treatment. 4. Follow instructions verbalized to you and refer to the printouts if needed. ADDITIONAL INSTRUCTIONS AND INFORMATION: 1. Your care today has been supervised by a physician who is specially trained in emergency care. Many problems require more than one evaluation for a complete diagnosis and treatment. We recommend that you schedule your follow up appointment as recommended to ensure complete treatment of you illness or injury. If you are unable to obtain follow up care and continue to have a problem, or if your condition worsens, we recommend that you return to the ED. 2. We are not able to safely determine your condition over the phone nor are we able to give sound medical advice over the phone. For these safety reasons, if you call for medical advice we will ask you to come to the ED for further evaluation. 3. If you have any questions regarding these discharge instructions please call the ED at . SAFETY INFORMATION: In the interest of safety, wellness, and injury prevention; we encourage you to wear your seat belt, if you smoke; quite smoking, and we encourage family to use a protective helmet for bicycling and other sporting events that present an increased risk for head injury. IF YOUR SYMPTOMS WORSEN OR NEW SYMPTOMS DEVELOP, OR YOU HAVE CONCERNS ABOUT YOUR CONDITION; OR IF YOUR CONDITION WORSENS WHILE YOU ARE WAITING FOR YOUR FOLLOW UP APPOINTMENT; EITHER CONTACT YOUR PRIMARY CARE DOCTOR, THE PHYSICIAN WHOSE NAME AND NUMBER YOU WERE GIVEN, OR RETURN TO THE ED IMMEDIATELY. LADY RAJAN Sep 25, 2021 10:10
--- NOTE | 2021-09-25 10:17 | RAD ---
XR CHEST 1V CLINICAL INDICATIONS: Reason: overdose, dyspnea / Spl. Instructions: / History: COMPARISON: July 05, 2020. Findings: No acute lung infiltrate or pleural effusion or pulmonary edema or lung mass or pneumothora x is seen. The heart size, pulmonary vasculature, mediastinum and both akin are unremarkable. Mild s coliosis is seen. IMPRESSION: No acute radiographic abnormality is seen. Electronically signed by: Ezra Steward MD (09/25/2021 10:15 AM) [id number]
[2021-09-25 10:41] LABS: BASO # 0.1 x10^3/uL (0.0-0.2); BASO % 1 % (0-3); EOS # 0.3 x10^3/uL (0.0-0.7); EOS % 4 % (0-3); HEMATOCRIT 37.5 % (36.0-47.0); HEMOGLOBIN 12.3 g/dL (12.0-15.5); LYMPH # 2.4 x10^3/uL (1.0-4.8); LYMPH % 36 % (24-48); MEAN CORPUSCULAR HEMOGLOBIN 30 pg (25-35); MEAN CORPUSCULAR HGB CONC 33 g/dL (31-37); MEAN CORPUSCULAR VOLUME 92 fL (79-100); MONO # 0.6 x10^3/uL (0.0-1.1); MONO % 9 % (0-9); NEUT # 3.4 x10^3/uL (1.8-7.7); NEUT % 50 % (31-73); PLATELET COUNT 221 x10^3/uL (140-400); RED BLOOD COUNT 4.09 x10^6/uL (3.50-5.40); RED CELL DISTRIBUTION WIDTH 13.6 % (11.5-14.5); WHITE BLOOD COUNT 6.8 x10^3/uL (4.0-11.0)
[2021-09-25 10:49] LABS: CREATININE 0.6 mg/dL (0.6-1.0); GFR 109.6; POTASSIUM 3.6 mmol/L (3.5-5.1)
[2021-09-25 10:55] LABS: ALBUMIN 3.4 g/dL (3.4-5.0); TOTAL BILIRUBIN 0.2 mg/dL (0.2-1.0); TOTAL PROTEIN 6.9 g/dL (6.4-8.2)
[2021-09-25 12:06] LABS: BILIRUBIN,URINE NEGATIVE (NEG); CLARITY,URINE CLEAR; COLOR,URINE YELLOW; NITRITE,URINE NEGATIVE (NEG); PH,URINE 6.5 (<5.0-8.0); PROTEIN,URINE 30 mg/dL (NEG-TRACE)
[2021-09-25 12:14] LABS: BARBITURATES NEG (NEG); BENZODIAZEPINES NEG (NEG); CANNABINOIDS POS (NEG); COCAINE NEG (NEG); METHADONE NEG (NEG); OPIATES NEG (NEG); PHENCYCLIDINE POS (NEG)
[2021-09-25 12:16] LABS: BACTERIA,URINE FEW /HPF (0-FEW); RBC,URINE 0 /HPF (0-2)
[2021-09-25 12:30] LABS: AMPHETAMINE/METHAMPHETAMINE POS (NEG)
[2021-09-25 18:52] VITALS: BP 111/63
--- NOTE | 2021-09-26 03:37 | EKG ---
[facility] [address] [place] [address] Test Date: 2021-09-25 Test Time: 10:06:59 Pat Name: SHELBY MANCUSO Department: Room: Gender: F Gear Tester: : 1980 Requested By: LADY RAJAN Order Number: [id number] Reading MD: Kain Agrawal MD Measurements Intervals [place] Rate: 64 P: 68 [place]: 138 QRS: 37 QRSD: 108 T: 45 QT: 448 QTc: 467 Interpretive Statements SINUS RHYTHM Electronically Signed On 09-27-2021 8:25:16 [employer]ER by Kain Agrawal MD
== END 2021-09-25 18:56 | disposition home or self-care (01) ==
LOC: ER 09:45
DX: T50.901A Poisoning by unspecified drugs, medicaments and biological substances, accidental (unintentional), initial encounter (principal); R40.4 Transient alteration of awareness; F15.10 Other stimulant abuse, uncomplicated; R11.0 Nausea; L29.8 Other pruritus; F17.200 Nicotine dependence, unspecified, uncomplicated; J45.909 Unspecified asthma, uncomplicated; K58.9 Irritable bowel syndrome, unspecified; Y92.89 Other specified places as the place of occurrence of the external cause
CPT/HCPCS: 36415; 71045; 80053; 80307; 81001; 83690; 83735; 84484; 85025; 93005; 96361; 96374; 99285; J2405; J7120